=== PATIENT | male | born 1950 | race Caucasian/White ===

== ENCOUNTER → 2016-09-08 | Outpatient (CLI) | payer BC, MEDICARE ==
[~2016-09-08] MED LIST: ACETAMINOPHEN PO; ATENOLOL PO; FELDENE20 MG PO; FOLIC ACID PO; HYDROCODON-ACE1 EAC7 PO; MULTIVITAMIN W/1 TAB PO; NORVASC PO; PRO AIR PO; PROTONIX PO; THIAMINE HCL100 MG PO
--- NOTE | ~2016-09-08 | CR58 ---
[facility] A Service [facility] RADIOLOGY TEXT RESULTS PATIENT: NIHARIKA DUNCAN LOCATION: [facility] : 50 UNIT #: [id number] AGE: [address]: MADI KEYS SEX: M ORDER DR: [id number] [place] [id number] O MR#: [id number] Acc #: [id number] NAME: NIHARIKA DUNCAN : 1950 SEX: M STUDY DATE/TIME: 09/08/2016 14:15 UNIT: SRA ROOM: STUDY DESCRIPTION: CR Cervical Spine 2 or 3 Views Attending Physician: Paddy Medina Referring Physician: Paddy Medina Ordering Physician: Physician Non-Staff Primary Care Physician: Nata Kenny M.D. MEDICAL IMAGING REPORT This report is preliminary unless electronic signature is present. EXAM Two views of the cervical spine. DATE 09/08/2016 HISTORY 65-year-old male with neck pain which began 2 years ago. COMPARISON Flexion extension views of the cervical spine 04/09/2015. FINDINGS The flexion image is degraded by motion. There is moderately advanced diminished disc height at C5-6 and C6-7 with anterior osteophyte formation, mild posterior osteophyte formation, as well. No anterolisthesis or retrolisthesis is seen upon flexion or extension maneuvers. No evidence of cervical spine instability. No acute fracture is identified. No suspicious osteolytic or osteoblastic lesions are seen. IMPRESSION 1. No evidence of cervical spine instability on flexion or extension maneuvers. 2. Moderately advanced diminished disc height at C5-6, C6-7 with anterior greater than posterior osteophyte formation at each of these levels. The findings are not thought to be significantly changed compared to the 04/09/2015 study. Dictated by... Aliza Enriuqez M.D. [facility] A Service [facility] RADIOLOGY TEXT RESULTS PATIENT: NIHARIKA DUNCAN LOCATION: [facility] : 50 UNIT #: [id number] AGE: [address]: MADI KEYS SEX: M ORDER DR: THIS IS AN ELECTRONICALLY VERIFIED REPORT Aliza Enriquez M.D. at 09/09/2016 2:10 PM LIZA/kapil TD: 09/08/2016 22:54 JOB #: [id number] MEDICAL IMAGING REPORT Page 1 of 1
== END | disposition home or self-care (01) ==
LOC: SRAD 14:04
DX: M54.2 Cervicalgia (principal); M25.78 Osteophyte, vertebrae
CPT/HCPCS: 72040